=== PATIENT | male | born 1990 | race Caucasian/White ===

== ENCOUNTER 2022-05-06 03:50 | Emergency (ER) | payer OTHER ==
[~2022-05-06] VITALS: Ht 180.3 cm; Wt 108.9 kg
[2022-05-06 04:00] VITALS: BP 129/80
--- NOTE | 2022-05-06 04:00 | NUR ---
TO BED AMBULATORY
--- NOTE | 2022-05-06 04:10 | NUR ---
LEFT SHOULDER PAIN, FOR 3 DAYS, HE BROKE HIS RING FINGER LAST 11.21
[2022-05-06] MEDS ORDERED: KETOROLAC 30 MG/ML VIAL IM ONE (05:35)
[2022-05-06] MEDS ORDERED: ACET-8386 PO (05:41)
[2022-05-06] MEDS ORDERED: NAPR-54 PO (05:41)
--- NOTE | 2022-05-06 05:49 | NUR ---
SLING APPLIED TO R ARM. CMS CHEKED BEFORE/AFTER.
--- NOTE | 2022-05-06 05:50 | NUR ---
SLING APPLIED TO R ARM. CMS CHEKED BEFORE/AFTER.
--- NOTE | 2022-05-06 06:05 | NUR ---
Patient discharged with v/s stable. Written and verbal after care instructions given and explained. Patient alert, oriented and verbalized understanding of instructions. Ambulatory with steady gait. All questions addressed prior to discharge. ID band removed. Patient advised to follow up with PMD. Rx of HYDROCODONE ACETAMINOPHEN NAPROXEN given.
== END 2022-05-06 06:05 | disposition home or self-care (01) ==
LOC: MED 03:50
DX: M75.02 Adhesive capsulitis of left shoulder (principal)
CPT/HCPCS: 73030; 96372; 99283; J1885; Q0092